=== PATIENT | female | born 1960 | race Caucasian/White ===

== ENCOUNTER 2022-05-24 13:31 | Emergency (ER) | payer MEDICARE, SELFPAY ==
--- NOTE | ~2022-05-24 | XR_ITS ---
EXAMINATION: XR chest 1V INDICATION: Left arm numbness and tingling TECHNIQUE: AP view of the chest is obtained COMPARISON: 10/24/2019 FINDINGS: The lungs are free of acute opacities. No pleural effusion or pneumothorax. The cardiomedia stinal silhouette is normal. Moderate osteoarthritis is noted in the left glenohumeral joint. IMPRESSION: 1. No acute cardiopulmonary abnormality. Reviewed, dictated and finalized at location [facility].
--- NOTE | ~2022-05-24 | CT_ITS ---
EXAMINATION: CT brain wo con DATE: 05/24/2022 14:49 INDICATION: Left arm weakness TECHNIQUE: Computed tomography (CT) of the head was performed without intravenous contrast. Sagittal and coronal reconstructions were performed. The mA was adjusted according to patient size. Iterative reconstruction technique was employed. The dose-length product was 681.00 mGy-cm. COMPARISON: None FINDINGS: No acute intracranial hemorrhage, acute infarction or abnormal extra axial fluid collection. There is mild scattered white matter hypoattenuation consistent with chronic small vessel ischemic disease. V entricles are normal and symmetric. No mass/mass effect. The orbits, paranasal sinuses and mastoid ai r cells are normal. IMPRESSION: 1. Mild scattered white matter hypoattenuation consistent with chronic small vessel ischemic disease. No other evident acute intracranial process. Reviewed, dictated and finalized at location [facility]. IMPRESSION: 1. Mild scattered white matter hypoattenuation consistent with chronic small ve ssel ischemic disease. No other evident acute intracranial process.
[2022-05-24 13:42] VITALS: BP 143/78; PULSE 93; RESP 17; TEMP 36.4; O2SAT 100
--- NOTE | 2022-05-24 13:48 | ED.NEUROSD ---
HPI - Neuro Symptoms/Deficit General Chief Complaint: Neuro Symptoms/Deficit Stated Complaint: numbness in left arm since 0500 Time Seen by Provider: 05/24/22 13:48 History of Present Illness HPI Narrative: Patient is a 62-year-old female with a history of CVA, TIA, diabetes, hypertension, COPD, presenting to the emergency department for left upper extremity numbness. Patient reports that she awakened with left upper extremity numbness which would make her last known well May 23 at 10 PM. Patient states that she slept on her left side, and awakened this morning with a tingling sensation throughout her left upper extremity. She denies weakness. She denies facial droop or difficulty with speech. She denies any lower extremity weakness. She has had normal range of motion in the left upper extremity without difficulty. Patient denies vision changes. She denies chest pain, shortness of breath patient does still smoke. She denies any cough or hemoptysis. When questioned, patient cannot remember if she ever received tPA or intervention on her previous CVAs. I did review the patient's chart for which she has not been seen for TIAs in the past. With the most recent visit to our facility in October 2019 for rib pain. When questioned pt states that she has been seen at [facility] for TIA/stroke symptoms in the past. She never required transfer to a larger facility for these episodes. Related Data Allergies Allergy/AdvReac Type Severity Reaction Status Date / Time Penicillins Allergy Mild APNEA Verified 05/24/22 14:00 Sulfa (Sulfonamide Allergy Mild Rash Verified 05/24/22 14:00 Antibiotics) Review of Systems Review of Systems: CONSTITUTIONAL: Denies fever, chills, or sweats. EYES: Denies visual changes, redness, or discharge. ENT: Denies rhinorrhea, congestion, sore throat, or otalgia. CARDIOVASCULAR: Denies chest pain, palpitations, or edema. RESPIRATORY: Denies cough or dyspnea. GASTROINTESTINAL: Denies abdominal pain, nausea, vomiting, or diarrhea. GENITOURINARY: Denies dysuria or hematuria. SKIN: Denies rash or itching. MUSCULOSKELETAL: Denies back pain, joint pain, or myalgia. NEUROLOGIC: Denies headache, reports left upper extremity numbness, denies weakness PMFSH Past Medical History Medical History CVA (cerebral vascular accident) Diabetes Hypertension Surgical History Surgical History H/O: hysterectomy Social History Social History Smoking status: Current every day smoker Exam Narrative: GENERAL: Awake, alert, conversant HEAD: Normocephalic, atraumatic. EYES: PERRLA and EOMI. ENT: Nares clear, no rhinorrhea or epistaxis. Mucous membranes moist. NECK: Supple. CHEST: No respiratory distress, breathing even and non labored HEART: Regular rate, sinus rhythm ABDOMEN:Non distended, non tender EXTREMITIES: Normal range of motion. Chronic venous stasis changes to the bilateral lower extremities. No pitting edema. No ecchymosis. No induration or abscess. No wounds. SKIN: Warm, dry, no rash. NEURO:No focal deficits. Alert and oriented x3. Finger to nose intact bilaterally. EOMs intact without nystagmus. No facial droop/asymmetry noted bilaterally. Grimace intact. Intact sensation in face. Hearing intact bilaterally. Shoulder shrug intact. Strength 5/5 bilateral upper extremities. Strength 5/5 bilateral lower extremities. Pt with normal, symmetrical sharp/dull testing in bilateral upper extremities. Reflexes 2+ patellar. Heel to lay[place] intact bilaterally. Ambulatory exam deferred. NIH stroke scale score of 0. Course Vital Signs Vital signs: Vital Signs Temperature 36.4 C L 05/24/22 13:42 Pulse Rate 93 05/24/22 13:42 Respiratory Rate 17 05/24/22 13:42 Blood Pressure 143/78 H 05/24/22 13:42 Pulse Oximetry 100 05/24/22 13:42 Oxygen Delivery
[2022-05-24 14:04] LABS: Glucose Point of Care 177 mg/dl (65-105)
--- NOTE | 2022-05-24 14:16 | ECG_ITS ---
Measurements Intervals [place] Rate: 93 P: 41 CO: 167 QRS: 21 QRSD: 97 T: 58 QT: 382 QTc: 477 Interpretive Statements SINUS RHYTHM OTHERWISE NORMAL ECG COMPARED TO ECG 05/10/2019 00:02:59 NO DIFFERENCE Electronically Signed On 05-25-2022 16:29:50 CDT by Benjamin Posadas M.D.
[2022-05-24 15:09] LABS: Basophils Percent Auto 0.4 % (0.2-1.2); Eosinophils Absolute Auto 0.2 K/mm3 (0-0.3); Hematocrit 39.8 % (37.0-47.0); Hemoglobin 13.1 g/dL (12.0-15.0); Immature Granulocyte Absolute 0.02 K/mm3 (0.00-0.031); Immature Granulocyte Percent A 0.2 % (0-0.5); Lymphocytes Absolute Auto 3.26 K/mm3 (0.9-3.2); Lymphocytes Percent Auto 38.1 % (18.3-44.2); Mean Corpuscular HGB Conc 32.9 g/dl (32-36); Mean Corpuscular Hemoglobin 29.4 pg (26-34); Mean Corpuscular Volume 89.2 fl (80-100); Mean Platelet Volume 9.2 fl (7.4-10.4); Monocytes Absolute Auto 0.5 K/mm3 (0.1-0.6); Monocytes Percent Auto 6.2 % (2.6-8.5); Neutrophils Absolute Auto 4.5 K/mm3 (1.3-6.7); Neutrophils Percent Auto 53.1 % (45.5-73.1); Platelet Count Result 314 k/mm3 (150-375); Red Blood Count 4.46 M/mm3 (4.2-5.4); Red Cell Distribution Width 13.1 % (11.5-14.5); White Blood Count 8.6 K/mm3 (4.5-10.0)
[2022-05-24 15:15] VITALS: BP 135/60; PULSE 84; RESP 13; O2SAT 96
[2022-05-24 15:17] LABS: Prothrombin Time 12.4 Seconds (11.1-14.7)
[2022-05-24 15:24] LABS: Anion Gap 8 mmol/L (8-16); Blood Urea Nitrogen 17 mg/dL (7-17); Calcium 8.9 mg/dL (8.4-10.2); Carbon Dioxide 30 mmol/L (22-30); Chloride 101 mmol/L (98-107); Estimated CRCL calculation 68 ml/min; Estimated Glomerular Filt Rate > 60; Glucose 163 mg/dL (65-110); Potassium 3.9 mmol/L (3.4-5.0); Sodium 139 mmol/L (137-145)
[2022-05-24 15:35] LABS: Troponin I < 0.012 ng/mL (0.000-0.034)
[2022-05-24 16:19] VITALS: BP 138/82; PULSE 88; RESP 18; O2SAT 95
[2022-05-24 16:23] LABS: Add Urine Microscopic? YES; Appearance Urine Clear (Clear); Bilirubin Urine Negative (Negative); Blood Urine Negative (Negative); Color Urine Yellow (Yellow); Glucose Urine UA Negative (Negative); Ketones Urine Negative (Negative); Leukocyte Esterase Ur Trace LEU/UL (Negative); Nitrate Urine Negative (Negative); Protein Urine Negative (Negative); Specific Grav Ur >= 1.030 (1.001-1.035); Urobilinogen Urine 0.2 mg/dL (<2.0)
[2022-05-24 16:27] LABS: Bacteria Urine Trace /hpf; Mucus Urine Rare /lpf; RBC Urine 0-2 /hpf (0-2); Squamous Epithelial Cell Urine Many /hpf (Few)
[2022-05-24 16:33] VITALS: BP 122/65; PULSE 86; RESP 18; O2SAT 96
== END 2022-05-24 16:36 | disposition home or self-care (01) ==
PROVIDERS: Emergency Provider Emergency Medicine; PCP Internal Medicine
DX: R20.2 Paresthesia of skin (principal); I10 Essential (primary) hypertension; J44.9 Chronic obstructive pulmonary disease, unspecified; Z86.73 Personal history of transient ischemic attack (TIA), and cerebral infarction without residual deficits; F17.200 Nicotine dependence, unspecified, uncomplicated
CPT/HCPCS: 36415; 70450; 71045; 80048; 81001; 82948; 84484; 85025; 85610; 85730; 93005; 99284

== ENCOUNTER 2024-06-13 14:39 | Emergency (ER) | payer MEDICARE, SELFPAY ==
--- NOTE | ~2024-06-13 | XR_ITS ---
Right Shoulder Technique: AP and scapular Y views were obtained. Clinical History: Pain Findings: No fracture or dislocation is seen. Osseous alignment is anatomic. The glenohumeral and acr omioclavicular joint spaces are preserved. Soft tissues are unremarkable. Impression: Unremarkable right shoulder radiographs. Reviewed, dictated and finalized at [facility]. Impression: Unremarkable right shoulder radiographs.
[2024-06-13 14:43] VITALS: BP 202/82; PULSE 90; RESP 16; TEMP 36.6; O2SAT 100
--- NOTE | 2024-06-13 14:46 | ECG_ITS ---
Test Date: 2024-06-13 14:48:51 Measurements Intervals [place] Rate: 85 P: 17 LA: 144 QRS: 18 QRSD: 94 T: 51 QT: 366 QTc: 435 Interpretive Statements SINUS RHYTHM CONSIDER INFERIOR INFARCT, AGE INDETERMINATE NONSPECIFIC ST-T WAVE ABNORMALITY- HIGH LATERAL LEADS BASELINE ARTIFACT- I, III, AVR, AVL, AVF ABNORMAL ECG No previous ECG available for comparison Electronically Signed On 06-13-2024 20:49:55 CDT by Julian Richmond D.O.
[2024-06-13 15:10] VITALS: BP 170/63; PULSE 80; RESP 16; TEMP 36.8; O2SAT 96
[2024-06-13] MEDS: HYDROcodone/acetaminophen (*CRX) 5-325 MG TABLET 1 TAB PO (15:16)
[2024-06-13 15:18] VITALS: BP 171/72; PULSE 81; RESP 16; TEMP 36.8; O2SAT 96
--- NOTE | 2024-06-13 15:53 | ED.UPPEXIN ---
HPI - Extremity Injury (Upper) General Chief Complaint: Extremity Injury, Upper Stated Complaint: right UE pain Time Seen by Provider: 06/13/24 14:51 Source: patient Mode of arrival: wheelchair Limitations: no limitations History of Present Illness HPI narrative: 64-year-old with a history of hypertension, COPD there with a complains of 2 or 3 day history of right shoulder pain. Patient denies any fall. Patient states that pain is radiating into her elbow and interscapular area. She denies any shortness of breath and cough. MD complaint: injury to: right and shoulder Onset (ago): day(s) (2) Other injuries: none Handedness: right Place: home Severity: moderate Relieving factors: immobilization Exacerbating factors: movement of extremity Associated symptoms: denies other symptoms Related Data Allergies Allergy/AdvReac Type Severity Reaction Status Date / Time Penicillins Allergy Mild APNEA Verified 06/13/24 15:13 Sulfa (Sulfonamide Allergy Mild Rash Verified 06/13/24 15:13 Antibiotics) Review of Systems Review of Systems: All systems reviewed & are unremarkable except as noted in HPI and below Constitutional: Constitutional: Reports no additional constitutional complaints Eyes: Eyes: Reports no additional eye complaints ENT: Reports system reviewed and no additional complaints, except as documented Cardiovascular: Cardiovascular: Reports no additional cardiovascular complaints Gastrointestinal: Gastrointestinal: Reports no additional gastrointestinal complaints Musculoskeletal: Musculoskeletal: Reports as per HPI Neurologic: Reports system reviewed and no additional complaints, except as documented PMFSH Past Medical History Medical History CVA (cerebral vascular accident) Diabetes Hypertension Surgical History Surgical History H/O: hysterectomy Social History Social History Smoking status: Current every day smoker Exam Narrative: GENERAL: Well-appearing, well-nourished, and in no acute distress. HEAD: Normocephalic, atraumatic. EYES: PERRLA and EOMI. ENT: Nares clear, no rhinorrhea or epistaxis. Mucous membranes moist. NECK: Supple. CHEST: Clear to auscultation. No respiratory distress. HEART: Regular rate and rhythm. No murmur heard. Normal peripheral pulses. ABDOMEN: Soft, nontender, nondistended, normal active bowel sounds. EXTREMITIES: Normal range of motion. No edema. Painful ROM of the right shoulder SKIN: Warm, dry, no rash. NEURO: No focal deficits. Alert and oriented x3. PSYCH: Normal mood and affect. Course Course Emergency Course: He has x-ray of the right shoulder showed no evidence of fracture or dislocation inform patient about her EKG and x-ray findings. Advised her to take pain medication as prescribed . Vital Signs Vital signs: Vital Signs Temperature 36.6 C 06/13/24 14:43 Pulse Rate 90 06/13/24 14:43 Respiratory Rate 16 06/13/24 14:43 Blood Pressure 202/82 H 06/13/24 14:43 Pulse Oximetry 100 06/13/24 14:43 Oxygen Delivery Room Air 06/13/24 14:43 Temperature 36.8 C 06/13/24 15:18 Pulse Rate 81 06/13/24 15:18 Respiratory Rate 16 06/13/24 15:18 Blood Pressure 171/72 H 06/13/24 15:18 Pulse Oximetry 96 06/13/24 15:18 Oxygen Delivery Room Air 06/13/24 15:10 MDM - Extremity Injury (Upper) Imaging Data Radiologist's impression: ITS Impressions Shoulder X-Ray 06/13/24 15:30 Impression: Unremarkable right shoulder radiographs. ECG Data EKG #1: ECG completion date: 06/13/24 ECG completion time: 14:48 EKG Interpretation: normal rate (85), sinus rhythm, non-specific ST changes, normal QRS and NL axis Discharge Plan Discharge Clinical Impression: Right shoulder pain Patient Disposition: Home, Self-Care Co
[2024-06-13 16:21] VITALS: BP 168/72; PULSE 74; RESP 16; TEMP 36.5; O2SAT 100
== END 2024-06-13 16:24 | disposition home or self-care (01) ==
PROVIDERS: Emergency Provider Family Medicine; PCP Internal Medicine
DX: M25.511 Pain in right shoulder (principal); I10 Essential (primary) hypertension; E11.9 Type 2 diabetes mellitus without complications; J44.9 Chronic obstructive pulmonary disease, unspecified; F17.200 Nicotine dependence, unspecified, uncomplicated; Z86.73 Personal history of transient ischemic attack (TIA), and cerebral infarction without residual deficits
CPT/HCPCS: 73030; 93005; 99283; A9270